=== PATIENT | male | born 1985 | race Caucasian/White ===

== ENCOUNTER → 2018-08-05 20:12 | Outpatient (CLI) | payer OTHER, SELFPAY ==
--- NOTE | 2018-08-05 | DI.MRI.S_ITS ---
PROCEDURE: MR KNEE LT WO CON INDICATIONS: PAIN IN LEFT KNEE TECHNIQUE: Noncontrast sagittal PD fast spin echo and T2 fast spin echo with fat saturation, sagittal 3-D FLASH with fat saturation; coronal T1 spin echo and PD fast spin echo with fat saturation, and axial PD fast spin echo with fat saturation through the knee. COMPARISON: None. FINDINGS: Image quality: Diagnostic. Bones and joint: There is no acute fracture or dislocation. No suspicious osseous lesions are evident. Postoperative changes are present related to prior ACL reconstruction. Mild susceptibility artifact at the orthopedic anchor sites are present involving the distal femur and proximal tibia. There is a small knee joint effusion without significant fluid extending into a Flores's cyst. There are small full-thickness cartilaginous defects involving the medial and lateral femoral condyles. No large cartilaginous defects are identified. Cruciate ligaments: Postoperative changes related to prior ACL reconstruction are present. The graft is noted to be intact and otherwise unremarkable. The posterior cruciate ligament is intact and within normal limits. Menisci: There is posterior root avulsion of the medial meniscus with separation of the torn meniscal fragments by up to approximately 10 mm (image 23, series 11). The lateral meniscus is intact and otherwise unremarkable. Medial structures: The medial collateral ligament is thickened, but intact, likely representing scarring from previous partial thickness injury. The semimembranosus tendon insertion is intact. The imaged portions of the pes anserinus tendons are unremarkable. No significant fluid is contained within the pes anserinus bursa. Lateral structures: The popliteal tendon is intact. The lateral collateral ligament proper (fibular collateral ligament) and the proximal tibiofibular ligaments are intact. The distal aspect of the biceps femoris tendon and the iliotibial band are intact. Anterior structures: The quadriceps and patellar tendons are intact. Mild increased signal is identified involving the proximal and distal margins of the patellar tendon and the distal quadriceps tendon. There is mild edema in the infrapatellar fat pad. IMPRESSION: 1. Intact ACL graft, status post ACL reconstruction. 2. Posterior root avulsion of the medial meniscus with associated partial extrusion of the body. 3. Small knee joint effusion. 4. Early medial and lateral compartment chondromalacia. 5. Mild patellar and distal quadriceps tendinopathy. No significant tearing. Dictated by: Lee Kunz M.D. on 08/06/2018 at 13:48 Approved by: Lee Kunz M.D. on 08/06/2018 at 13:55
== END ==
PROVIDERS: Visit Provider Orthopaedic Surgery
DX: M25.562 Pain in left knee (principal); M25.462 Effusion, left knee; M94.262 Chondromalacia, left knee; M67.864 Other specified disorders of tendon, left knee
CPT/HCPCS: 73721

== ENCOUNTER 2019-01-27 19:20 | Emergency (ER) | payer OTHER, SELFPAY ==
[2019-01-27 19:28] VITALS: BP 153/89; PULSE 104; RESP 16; TEMP 36.8; O2SAT 100; BMI 27.8
--- NOTE | 2019-01-27 19:47 | ED_ITS ---
HPI - Extremity Injury (Lower) <LUCIANO Romero - Last Filed: 01/27/19 20:42> General Chief Complaint: Extremity Injury, Lower Stated Complaint: left knee pain from surgery Time Seen by Provider: 01/27/19 19:24 Source: patient Mode of arrival: Family Vehicle History of Present Illness HPI Narrative: 33-year-old male with a history of left meniscus repair in the middle of November, presents emergency department complaining of left knee pain for the past 2 days. Patient states his last dose of Tylenol was at noon. He states he has increased his activity 2 days ago and noticed a gradual onset dull aching pain to the medial aspect of his leg. Patient reports he has taken a 1000 mg of Tylenol every 4 hours for the past 2 days. He has not used any NSAIDs as he only has 1 working kidney. He denies any trauma to the knee, falls, increased swelling, or discoloration. Patient reports he has tried to call his orthopedic provider but has not received a call and return. Patient has had a history of multiple surgeries to that knee including ACL repair, removal of a cyclops lesions, nerve of lesion, meniscus repair, and root repair. Patient denies any other symptoms such as fevers, chills, nausea, vomiting, diarrhea, ankle pain, hip pain, other concerns. Related Data Previous Rx's Medication Instructions Recorded oxycodone 5 mg PO Q6H PRN #14 tab 01/27/19 Allergies Allergy/AdvReac Type Severity Reaction Status Date / Time morphine Allergy Hives Verified 01/27/19 19:31 Penicillins Allergy Hives Verified 01/27/19 19:31 Review of Systems <LUCIANO Romero - Last Filed: 01/27/19 20:42> Review of Systems Narrative: REVIEW OF SYSTEMS: GENERAL: Denies fever or chills. HENT: No head trauma. EYES: No double vision or vision loss. CARDIOVASCULAR: No chest pain or syncope. RESPIRATORY: No shortness of breath or cough. GASTROINTESTINAL: No nausea, vomiting, diarrhea, or constipation. GENITOURINARY: No flank pain or dysuria. MUSCULOSKELETAL: Complains of left knee pain, see HPI. INTEGUMENTARY: No rash, lesions, or pruritus. NEURO: No numbness, tingling. PSYCH: No behavior or mood changes. Patient History <LUCIANO Romero - Last Filed: 01/27/19 20:42> Surgical History S/P ACL repair (Acute) Social History Smoking Status: Current some day smoker Smoking Status: Current some day smoker tobacco type: vaping alcohol intake frequency: a few times a week Substance Use Type: does not use Exam <LUCIANO Romero - Last Filed: 01/27/19 20:42> Initial Vital Signs Initial Vital Signs: Vital Signs Temperature 98.2 F 01/27/19 19:28 Pulse Rate 104 H 01/27/19 19:28 Respiratory Rate 16 01/27/19 19:28 Blood Pressure 153/89 H 01/27/19 19:28 Pulse Oximetry 100 01/27/19 19:28 PHYSICAL EXAMINATION: GENERAL: Well groomed, alert, and cooperative. Answers questions promptly and appropriately. Vital signs noted. HENT: Normocephalic, atraumatic. EYES: Symmetrical, sclera white, no periorbital swelling. CARDIOVASCULAR: S1 and S2 sounds normal. Regular rate and rhythm, no murmurs, clicks, or bruits. No pedal edema. RESPIRATORY: Normal respiratory rate, trachea midline, airway patent. No stri joslyn, nasal flaring or accessory muscle use. Lungs are clear in all puga. MUSCULOSKELETAL: Left medial meniscus tenderness with palpation. No special knee test were performed as due to recent surgery and patient's knee remained in a hinged brace. Slight swelling present, no erythema or ecchymosis. Patient able to ambulate. Equal tone and mass bilaterally. No spinal tenderness or deformities. EXTREMITIES: CMS intact. No pedal edema. SKIN: Warm, dry, soft, appropriate color for ethnicity. No lesions, rashes, or wounds. NEURO: Alert and Oriented X 3. No sensory deficits. PSYCH: Appropriate affect and mood. <Flor Gandhi DO - Last Filed: 01/27/19 22:30> Initial Vital Signs Initial Vital Signs: Vital Signs Temperature 98.2 F 01/27/19 19:28 Pulse Rate 104 H 01/27/19 19:28 Respiratory Rate 16 01/27/19 19:28 Blood Pressure 153/89 H 01/27/19 19:28 Pulse Oximetry 100 01/27/19 19:28 Scores <LUCIANO Romero - Last Filed: 01/27/19 20:42> Wells' Criteria for DVT Active Cancer (Treatment within 6 months): No Bedridden recently >3 days or major surgery within 4 weeks: No Calf Swelling >3cm compared to other leg: No Collateral (nonvericose) superficial veins present: No Entire leg swollen: No Localized tenderness along the deep vein system: No Pitting edema, confined to symtomatic leg: No Paralysis, paresis, or recent plaster immobilization of ext: No Previously documented DVT: No Alternative dx to DVT as likely or more likely: No Wells' criteria for DVT: 0 Course <LUCIANO Romero - Last Filed: 01/27/19 20:42> Course Course Narrative: Patient's labs were drawn to check for Tylenol toxicity and liver function due to accidentally overdosing on Tylenol. Orders Ordered: ED Orders 01/27/19 19:56 Acetaminophen Stat Comprehensive Metabolic Panel Stat Consultations Consultation #1: Patient staffed with Dr. Ganhdi Vital Signs Vital signs: Vital Signs - 8 hr 01/27/19 19:28 Temperature 98.2 F Pulse Rate 104 H Respiratory Rate 16 Blood Pressure 153/89 H Pulse Oximetry 100 <Flor Gandhi DO - Last Filed: 01/27/19 22:30> Orders Ordered: ED Orders 01/27/19 19:56 Acetaminophen Stat Comprehensive Metabolic Panel Stat Vital Signs Vital signs: Vital Signs - 8 hr 01/27/19 19:28 Temperature 98.2 F Pulse Rate 104 H Respiratory Rate 16 Blood Pressure 153/89 H Pulse Oximetry 100 MDM - Extremity Injury (Lower) <LUCIANO Romero - Last Filed: 01/27/19 20:42> Medical Records Attestation: I reviewed the patient's medical records. Lab Data Attestation: I reviewed the patient's lab results. Result diagrams: 01/27/19 19:56 Labs: Lab Results 01/27/19 Range/Units 19:56 Sodium 141 (137-145) mmol/L Potassium 3.9 (3.4-5.1) mmol/L Chloride 103 (98-107) mmol/L Carbon Dioxide 29 (22-32) mmol/L BUN 13 (9-20) mg/dL Creatinine 1.60 H (0.66-1.25) mg/dL Estimated GFR 49.4 L (>60) mL/min BUN/Creatinine Ratio 8.1 (6-22) Glucose 94 (70-100) mg/dL Calcium 9.3 (8.4-10.2) mg/dL Total Bilirubin 0.7 (0.2-1.3) mg/dL AST 41 (17-59) IU/L ALT 30 (<50) IU/L Alkaline Phosphatase 75 (38-126) U/L Total Protein 7.2 (6.3-8.2) g/dL Albumin 4.3 (3.5-5.0) g/dL Globulin 2.9 (1.7-4.1) g/dL Albumin/Globulin Ratio 1.5 (1.0-2.8) Acetaminophen < 10 L (10-30) ug/mL MDM Narrative Medical decision making narrative: This is a 33-year-old male presenting [facility] with left knee pain after multiple surgeries with her recent surgery in November. The pain was worse after increased physical activity the past few days. This pain is most likely caused by a healing surgical procedure with exacerbated pain due to increased use of his meniscus. Less likely fracture due to lack of trauma. Less likely infection due to lack of erythema. Less likely a blood clot due to lack of significant risk factors or calf pain. Labs were drawn as patient reported that he accidentally overdosed on Tylenol taking 1000 mg of Tylenol every 4 hours for the past few days. However, liver enzymes and Tylenol or within normal limits. Patient was encouraged to follow up with his primary care provider and to refrain from taking Tylenol for the next 48 hours. Return precautions given. <Flor Gandhi, DO - Last Filed: 01/27/19 22:30> Lab Data Labs: Lab Results 01/27/19 Range/Units 19:56 Sodium 141 (137-145) mmol/L Potassium 3.9 (3.4-5.1) mmol/L Chloride 103 (98-107) mmol/L Carbon Dioxide 29 (22-32) mmol/L BUN 13 (9-20) mg/dL Creatinine 1.60 H (0.66-1.25) mg/dL Estimated GFR 49.4 L (>60) mL/min BUN/Creatinine Ratio 8.1 (6-22) Glucose 94 (70-100) mg/dL Calcium 9.3 (8.4-10.2) mg/dL Total Bilirubin 0.7 (0.2-1.3) mg/dL AST 41 (17-59) IU/L ALT 30 (<50) IU/L Alkaline Phosphatase 75 (38-126) U/L Total Protein 7.2 (6.3-8.2) g/dL Albumin 4.3 (3.5-5.0) g/dL Globulin 2.9 (1.7-4.1) g/dL Albumin/Globulin Ratio 1.5 (1.0-2.8) Acetaminophen < 10 L (10-30) ug/mL MDM Narrative Medical decision making narrative: Patient's last dose of Tylenol was at noon Tylenol level is negative 8 hours after last dose. No sign of Tylenol toxicity Discharge Plan Departure Patient Disposition: Home Clinical Impression: Acute knee pain Qualifiers: Laterality: left Qualified Code(s): M25.562 - Pain in left knee Discharge Date/Time: 01/27/19 20:43 Instructions: DI for Knee Pain Activity Restrictions/Additional Instructions: Thank you for entrusting me with your care today. As discussed, I prescribed you oxycodone. Do not take Tylenol for the next 48 hours. If you do take Tylenol again, do not exceed more than 3 g of Tylenol in a day and take a 1000 mg of Tylenol every 6 hours and not any sooner. Follow-up with your orthopedic in the next week for re-evaluation. Return to the ED for new or worsening symptoms such as uncontrollable vomiting, abdominal pain, chest pain, shortness of breath, or other concerns. Prescriptions: New oxycodone 5 mg tablet 5 mg PO Q6H PRN (Reason: pain) Qty: 14 RF: 0
[2019-01-27 20:16] LABS: Acetaminophen < 10 ug/mL (10-30); Alanine Aminotransferase 30 IU/L (<50); Albumin 4.3 g/dL (3.5-5.0); Albumin Globulin Ratio 1.5 (1.0-2.8); Alkaline Phosphatase 75 U/L (38-126); Aspartate Aminotransferase 41 IU/L (17-59); BUN Creatinine Ratio 8.1 (6-22); Bilirubin Total 0.7 mg/dL (0.2-1.3); Blood Urea Nitrogen 13 mg/dL (9-20); Calcium 9.3 mg/dL (8.4-10.2); Carbon Dioxide 29 mmol/L (22-32); Chloride 103 mmol/L (98-107); Estimated Glomerular Filt Rate 49.4 mL/min (>60); Globulin 2.9 g/dL (1.7-4.1); Glucose 94 mg/dL (70-100); HEMOLYSIS < 15 (0-50); Potassium 3.9 mmol/L (3.4-5.1); Sodium 141 mmol/L (137-145); Total Protein 7.2 g/dL (6.3-8.2)
== END 2019-01-27 20:43 | disposition home or self-care (01) ==
PROVIDERS: Emergency Provider Nurse Practitioner
DX: M25.562 Pain in left knee (principal)
CPT/HCPCS: 36415; 80053; 80329; 99283; G0480

== ENCOUNTER → 2024-07-09 09:40 | Outpatient (CLI) | payer OTHER, SELFPAY ==
[2024-07-09 10:47] LABS: Alanine Aminotransferase 21 IU/L (<50); Albumin 4.2 g/dL (3.5-5.0); Albumin Globulin Ratio 1.7 (1.0-2.8); Alkaline Phosphatase 59 U/L (38-126); Aspartate Aminotransferase 35 IU/L (17-59); Bilirubin Total 0.6 mg/dL (0.2-1.3); Blood Urea Nitrogen 11 mg/dL (9-20); Calcium 9.4 mg/dL (8.4-10.2); Carbon Dioxide 30 mmol/L (22-32); Chloride 99 mmol/L (98-107); Estimated Glomerular Filt Rate 56 mL/min (>60); Globulin 2.5 g/dL (1.7-4.1); Glucose 93 mg/dL (70-99); HEMOLYSIS < 15 (0-50); Potassium 4.5 mmol/L (3.4-5.1); Sodium 138 mmol/L (137-145); Total Protein 6.7 g/dL (6.3-8.2)
[2024-07-09 12:30] LABS: Appearance Urine UA CLEAR; Bilirubin Urine UA NEGATIVE (NEGATIVE); Color Urine UA YELLOW; Glucose Urine UA NEGATIVE (Negative); Ketones Urine UA NEGATIVE (NEGATIVE); Leukocyte Esterase Urine UA NEGATIVE (NEGATIVE); Nitrite Urine UA NEGATIVE (Negative); Occult Blood Urine UA NEGATIVE (Negative); Protein Urine UA NEGATIVE (Negative); Urobilinogen Urine UA 0.2 E.U./dL (0.2)
[2024-07-09 12:41] LABS: Bacteria Urine None Seen; Culture Indicated Urine Cult Not Indicated; RBC Urine 0-1/HPF (0-5/HPF); Squamous Epithelial Cell Urine None Seen (0-5/HPF); Urine Volume 10mL (spun); WBC Urine None Seen (0-5/HPF)
== END ==
PROVIDERS: Referring Provider Chiropractor; Visit Provider Chiropractor
DX: E11.9 Type 2 diabetes mellitus without complications (principal)
CPT/HCPCS: 36415; 80053; 81001